=== PATIENT | male | born 1980 | race Caucasian/White ===

== ENCOUNTER 2018-06-05 18:35 | Emergency (ER) | payer OTHER ==
[2018-06-05] MEDS ORDERED: MAG HYDROX/ALUMINUM HYD/SIMETH 30 ML, Lidocaine 2%Visc 15ml 20 MG, PHENOBARB-HYOSCYAM-A... PO ONE ×3 (18:47)
--- NOTE | 2018-06-05 19:00 | ED Physician Documentation ---
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 Patient reports he is not taking his Buspar twice a day as prescribed. Reports having a "panic attack' on Saturday night. Lives in [place], states he is due to see his psychiatrist.) - ROS CONST: no problems EYES/ENT: none CVS/RESP: other (chest tightness) GI/: other (epigastric pain) NEURO/PSYCH: anxiety. denies: headache, fainting, dizziness, tingling, numbness, difficulty walking, difficulty with speech - PAST HX Past History: other (Jennifer's disease) Allergies/Adverse Reactions: Allergies Allergy/AdvReac Type Severity Reaction Status Date / Time No Known Allergies Allergy Verified 06/05/18 19:24 Home Medications: Ambulatory Orders Medication Instructions Recorded Buspirone HCl [BUSPAR] 10 mg pe PO BID 06/05/18 Omeprazole 20 mg PO 0700 06/05/18 - SOCIAL HX Smoking History: cigarettes - FAMILY HX Family History: No - REVIEWED ASSESSMENTS Nursing Assessment Reviewed: Yes Vitals Reviewed: Yes Progress - Progress Progress: Patient states he "does not want anything for anxiety". Is currently on the road semi truck driver. GI cocktail given for epigastric discomfort. Pain resolved with GI cocktail. - EKG/XRAY/CT EKG: rhythm (SR, no acute changes. Rate 86) ED Results Lab/Radiology - Orders Orders: ED Orders Category Date Time Status TROPONIN I (cTnI) Stat Lab 06/05/18 18:57 Ordered Mag Hydrox/Aluminum Hyd/Simeth [Mylanta] 30 ml Med 06/05/18 18:47 Ordered Lidocaine 2%Visc 15ml [Xylocaine] 20 mg PHENobarb/HYOSCY/ATROPINE/SCOP [] 10 ml PO NOW EKG WITH COMPARISON Stat Ther 06/05/18 18:47 Ordered General Adult Physical Exam - PHYSICAL EXAM GENERAL APPEARANCE: anxious EENT: eye inspection normal, ENT inspection normal, pharynx normal, no signs of dehydration, MARCIA, no nystagmus, TM's nml, other (nose reconstruction - healed. ) RESPIRATORY: no resp distress, chest non-tender, breath sounds normal CVS: reg rate & rhythm, heart sounds normal, equal pulses, no murmur, no gallop, PMI nml, no JVD, no friction rub, 24 ABDOMEN: soft, no organomegaly, normal bowel sounds, no abdominal bruit, no distension SKIN: normal color, warm/dry, NR, INT, PAL, DR EXTREMITIES: non-tender, normal range of motion, no evidence of injury, no edema, J, [employer] NEURO: oriented X3, CN's nml as tested, motor nml, sensation nml, mood/affect nml Discharge Clincal Impression: Anxiety, Epigastric abdominal pain Referrals: Primary Doctor,No [Primary Care Provider] - 2 Days Condition: Stable Disposition: 01 HOME, SELF-CARE Decision to Admit: NO Decision Time: 19:08
[2018-06-05] MEDS ORDERED: MAGNESIUM, ALUMINUM HYDROXIDE 30 ML UDC PO ONE (19:51)
[2018-06-05] MEDS ORDERED: LIDOCAINE HCL 2% VISC. ORAL 300MG/15ML UDC ONE (19:52)
[2018-06-05 19:59] VITALS: BP 115/79
== END 2018-06-05 19:45 | disposition home or self-care (01) ==
LOC: ED 18:35
DX: F41.9 Anxiety disorder, unspecified (principal); R10.13 Epigastric pain
CPT/HCPCS: 84484; 99282; 99283; S1016